=== PATIENT | female | born 1980 | race Caucasian/White ===

== ENCOUNTER 2016-06-23 05:05 | Emergency (ER) | payer SELFPAY ==
[2016-06-23] MEDS ORDERED: SODIUM CHLORIDE 0.9% 1,000 ML ONE (05:23)
[2016-06-23] MEDS ORDERED: CEFTRIAXONE 1 GM VIAL ONE (18:30)
[2016-06-23] MEDS ORDERED: LIDOCAINE 1% MDV 20 ML ONE (18:30)
== END 2016-06-23 07:42 | disposition home or self-care (01) ==
LOC: ER 05:05
DX: R07.2 Precordial pain (principal); R00.2 Palpitations; R00.0 Tachycardia, unspecified; E11.9 Type 2 diabetes mellitus without complications; Z79.84 Long term (current) use of oral hypoglycemic drugs
CPT/HCPCS: 36415; 71010; 80053; 82553; 84439; 84443; 84484; 85025; 93005; 96360; 96361